=== PATIENT | male | born 1990 | race Caucasian/White ===

== ENCOUNTER 2022-05-17 03:23 | Emergency (ER) | payer SELFPAY ==
[2022-05-17 03:38] VITALS: BP 119/84; PULSE 92; RESP 18; TEMP 37.1; O2SAT 98; BMI 33.0
--- NOTE | 2022-05-17 04:01 | CTR_ITS ---
PROCEDURE INFORMATION: Exam: CT Head Without Contrast Exam date and time: 05/17/2022 4:27 AM Age: 32 years old Clinical indication: Pain; Slurred speech; Patient HX: -headache for 4 days with speech disturbances on and off over same time period. Slurred words, stuttering or trying to put words to thoughts; Additional info: Headache, speech problems TECHNIQUE: Imaging protocol: Computed tomography of the head without contrast. Radiation optimization: All CT scans at this facility use at least one of these dose optimization techniques: automated exposure control; mA and/or kV adjustment per patient size (includes targeted exams where dose is matched to clinical indication); or iterative reconstruction. COMPARISON: CT head wo con* [id number] 05/31/2017 12:22 PM RADIATION DOSE METRICS: Total DLP (mGy-cm): 899.36 FINDINGS: Brain: No acute hemorrhage identified. No large territorial areas of hypoattenuation concerning for ischemic infarct identified. No intracranial mass effect. Cerebral ventricles: The ventricles are within normal limits. Paranasal sinuses: The visualized sinuses are unremarkable. Mastoid air cells: The visualized mastoid air cells are well aerated. Bones/joints: The osseous structures are intact. Soft tissues: Unremarkable. CT/CT head wo con* [id number] IMPRESSION: No acute intracranial abnormality.
--- NOTE | 2022-05-17 04:43 | ED_ITS ---
HPI - Headache General: Chief Complaint: Headache Stated Complaint: headache Time Seen by Provider: 05/17/22 03:52 Source: patient History of Present Illness: 32-year-old male with no significant medical problems. He presents with several symptoms over the past few days. He notes that he had a fever at times, headache, some transient visual changes, and some transient weakness. He presented to an outside facility 2 days ago, ended up going home without being seen. He did the same thing at this facility last night. He returns this morning for evaluation. His headache is improved currently. MD elicited complaint: headache Pertinent past history: other Onset (ago): day(s) Onset description: gradually Location: right and temporal Quality & Timing: aching and throbbing Exacerbating factors: none Relieving factors: nothing Associated symptoms: Reports fever(s), lightheadedness and paresthesias; Deny chest pain, confusion, eye pain, neck stiffness or vomiting Review of Systems Const: Reports: fever(s) ENMT: Reports: throat pain Card: Reports: lightheadedness; Denies: chest pain GI: Denies: vomiting Neuro: Denies: confusion Physical Exam Const: COMMON NORMALS: no acute distress and alert GENERAL APPEARANCE: cooperative and well developed; not ill appearing and not frail appearing HENMT: COMMON NORMALS: normocephalic, atraumatic and Normal external nose present HEAD & SCALP: normocephalic and atraumatic FACE & SINUS: normal facial exam and face symmetric NOSE: Normal external nose present and Normal nares present Eye: COMMON NORMALS: Equal, round and reactive pupils present and EOMs intact bilaterally PUPIL: Yes Equal, round and reactive pupils present Neck/C-Spine: GENERAL: Yes trachea midline CERVICAL SPINE: Yes cervical ROM normal Chest: CHEST: Yes Symmetrical chest wall rise Resp: COMMON NORMALS: normal respiratory effort, No use of accessory muscles and clear to auscultation bilaterally AUSCULTATION: clear to auscultation bilaterally Cardio: COMMON NORMALS: regular rate and regular rhythm RATE: regular rate RHYTHM: regular rhythm GI: COMMON NORMALS: Normal to inspection, nondistended, normoactive bowel sounds present Neuro: LENNY COMA SCALE: document GCS findings Lenny coma scale eye openin g: Spontaneous [place] coma scale verbal response: Orientated [place] coma scale motor response: Obey commands Lenny coma scale total score: 15 SENSORIUM/ORIENTATION: Yes alert CRANIAL NERVES: Yes CN normal except as noted COORDINATION/BALANCE: uzzals-lj-yfos test normal and lvbd-gq-[id number] test normal SPEECH: speech normal GAIT: Yes Normal gait present MOTOR EXAM: Pronator motor function not present COORDINATION: [id number]-pg-[id number] test normal and sarx-qh-hrsd test normal Psych: COMMON NORMALS: mental status grossly normal and cooperative Course Vital Signs: Vital signs: Vital Signs Temperature 98.7 F 05/17/22 03:38 Pulse Rate 92 05/17/22 03:38 Respiratory Rate 18 05/17/22 03:38 Blood Pressure 119/84 05/17/22 03:38 Pulse Oximetry 98 05/17/22 03:38 MDM - Headache Medical Decision Making Patient's NIH stroke scale is 0. He is afebrile here. With his history of sore throat, febrile illness, and headache, he will be tested for COVID-[address] is completed but read is pending. CT head is negative. He will be treated for migraine headache. COVID-19 antigen is negative as well. Lab Data Radiology Impressions Head CT 05/17/22 04:01 IMPRESSION: No acute intracranial abnormality. Laboratory Results SARS-CoV-2 Ag (Rapid) Negative (Negative) 05/17/22 04:34 Discharge Plan Discharge Patient Disposition: Home Clinical Impression: Headache Condition: Stable Discharge Orders: Discharge ED (Routine); Ordered 05/17/22 Ordered By: Jonah Kay Discharge Diet: Advance as tolerated Discharge Activity: Resume usual activity Patient Instructions: General Headache (ED) Activity Restrictions/Additional Instructions: No evidence of stroke on your CT scan. Symptoms are likely related to migraine headache. Return for worsening mental status, weakness, vomiting, any other concerning symptoms Coding Level of Care Code ED Electronic Equipment Trades Worker for Ara Fwd Exam Comprehensive
[2022-05-17 05:00] LABS: SARS Covid-2 Antigen Negative (Negative)
[2022-05-17] MEDS: promethazine 25 mg/mL SDV 1 mL IM (06:13)
[2022-05-17] MEDS: ketorolac 30 mg/mL INJ IM (06:14)
[2022-05-17 06:28] VITALS: BP 115/78; PULSE 80; RESP 18; TEMP 36.7; O2SAT 97
== END 2022-05-17 06:30 | disposition home or self-care (01) ==
PROVIDERS: Emergency Provider Emergency Medicine
DX: R51.9 Headache, unspecified (principal)
CPT/HCPCS: 70450; 87426; 96372; 99283; J1885; J2550

== ENCOUNTER 2025-01-25 13:48 | Emergency (ER) | payer OTHER, BC, MEDICAID, SELFPAY ==
[2025-01-25 13:53] VITALS: BP 135/95; PULSE 87; TEMP 36.6; O2SAT 99; BMI 38.4
[2025-01-25 14:20] LABS: Basophils % 0.4 %; Eosinophils # 0.2 10^3/uL (0.0-0.8); Eosinophils % 2.2 %; Hematocrit 43.2 % (37-53); Lymphocytes % 22.5 %; Mean Corpuscular HGB Conc 32.4 g/dL (30-55); Mean Corpuscular Hemoglobin 29.2 pg (27-33); Mean Corpuscular Volume 90.2 fl (82-101); Mean Platelet Volume 9.8 fL (7.4-10.4); Monocytes # 0.7 10^3/uL (0.2-0.9); Monocytes % 7.6 %; Neutrophils # 6.06 10^3/uL (1.8-7.7); Neutrophils % 67.1 %; Nucleated Red Blood Cells % 0 %; Platelet Count 337 10^3/cmm (157-399); Red Blood Count 4.79 10^6/uL (3.85-5.65); Red Cell Distribution Width 14.1 % (12.1-15.1); White Blood Count 9.04 10^3/uL (3.29-11.43)
[2025-01-25 14:40] LABS: Alanine Aminotransferase 25 U/L (0-41); Alkaline Phosphatase 95 U/L (40-130); Anion Gap 14.9 (5-19); Aspartate Amino Transferase 25 U/L (0-40); Blood Urea Nitrogen 13 mg/dL (6-20); Calcium 8.9 mg/dL (8.5-10.5); Carbon Dioxide 25 mmol/L (22-29); Chloride 100 mmol/L (98-107); Globulin 3.7 g/dL (1.3-4.6); Glomerular Filtration Rate 126.9 mL/min (90-130); Glucose 104 mg/dL (65-115); Lipase 20 U/L (13-60); Osmolality Calculated 282 mOsm/kg (285-295); Potassium 3.9 mmol/L (3.5-5.1); Sodium 136 mmol/L (136-145); Total Bilirubin 0.4 mg/dL (0.15-1.2); Total Protein 7.7 g/dL (6.6-8.7)
--- NOTE | 2025-01-25 16:21 | ED_ITS ---
HPI - Abdominal Pain 2 General: Chief Complaint: Abdominal Pain Stated Complaint: abd pain Time Seen by Provider: 01/25/25 16:05 History of Present Illness: 35-year-old male patient that works at [employer] comes in today for complaints of left upper abdominal pain. Patient is tender to the left upper abdomen. Patient reports no problems with bowels or bladder. Patient reports no fever or chills. Patient does do a lot of heavy lifting at work. Patient reports that over the last 3 days he has had increasing pain and discomfort. Patient appears nontoxic. Patient reports no chronic medical problems. Related Data Previous Rx's ?Medication ?Instructions ?Recorded hydrocodone 5 mg-acetaminophen 325 1 tab PO Q8H PRN pa in #6 tabs 01/25/25 mg tablet ibuprofen 800 mg tablet 800 mg PO Q6H PRN pain #30 t abs 01/25/25 Allergies Allergy/AdvReac Type Severity Reaction Status Date / Time No Known Allergies Allergy Verified 01/25/25 13:58 Review of Systems 2 General: Reports: 10 or more systems reviewed and unremarkable except in HPI and below PFSH ED 2 PFSH: Medical History (Updated 01/25/25 @ 16:22 by EMILY Lim) Psychiatric care Physical Exam 2 Const: COMMON NORMALS: alert HENMT: COMMON NORMALS: normocephalic HEAD & SCALP: normocephalic Neck/C-Spine: COMMON NORMALS: full ROM Resp: COMMON NORMALS: normal respiratory effort Cardio: COMMON NORMALS: regular rate and regular rhythm RATE: regular rate RHYTHM: regular rhythm GI: PALPATION: Yes Tenderness to palpation present (GI) (Left upper quadrant) OTHER: Muscle tenderness to the left upper quadrant, no palpable mass or hernia : COMMON NORMALS: Yes no CVA tenderness BLADDER/KIDNEY EXAM: Yes no CVA tenderness Back/Pelvis: COMMON NORMALS: no CVA tenderness Extremity: COMMON NORMALS: full ROM Neuro: SENSORIUM/ORIENTATION: Yes alert Skin: COMMON NORMALS: turgor normal GENERAL SKIN EXAM: turgor normal Course 2 Vital Signs: Vital signs: Vital Signs Temperature 97.9 F 01/25/25 13:53 Pulse Rate 87 01/25/25 13:53 Blood Pressure 135/95 01/25/25 13:53 Pulse Oximetry 99 01/25/25 13:53 Oxygen Delivery Me thod Room Air 01/25/25 13:53 MDM - Abdominal Pain Medical Decision Making 35-year-old male patient comes in today with left upper quadrant abdominal pain. On exam patient's abdomen is soft with some tenderness to the muscle of the left upper abdomen. Bowel sounds are present. Skin is warm and dry. Vital signs are normal. Differential diagnosis includes not limited to muscle strain, constipation, GERD, unlikely hernia. Laboratory values were normal. Believe patient most likely has a muscle strain as it is tender to touch and some palpable tightness is noted in a band of muscle to the area. No palpation of hernia is noted. It is unlikely for hernia to perform there unless he had prior surgery or noticeable trauma. Reviewed exam with patient with recommendation for treatment and follow-up. Patient reported understanding. Lab Data 01/25/25 14:12 01/25/25 14:12 Labs/Radiology: Laboratory Results WBC 9.04 10^3/uL (3.29-11.43) 01/25/25 14:12 RBC 4.79 10^6/uL (3.85-5.65) 01/25/25 14:12 Hgb 14.00 g/dL (11.27-16.99) 01/25/25 14:12 Hct 43.2 % (37-53) 01/25/25 14:12 MCV 90.2 fl (82-101) 01/25/25 14:12 MCH 29.2 pg (27-33) 01/25/25 14:12 MCHC 32.4 g/dL (30-55) 01/25/25 14:12 RDW 14.1 % (12.1-15.1) 01/25/25 14:12 Plt Count 337 10^3/cmm (157-399) 01/25/25 14:12 MPV 9.8 fL (7.4-10.4) 01/25/25 14:12 Neut % (Auto) 67.1 % 01/25/25 14:12 Lymph % (Auto) 22.5 % 01/25/25 14:12 Tompkins % (Auto) 7.6 % 01/25/25 14:12 Eos % (Auto) 2.2 % 01/25/25 14:12 Baso % (Auto) 0.4 % 01/25/25 14:12 Neut # (Auto) 6.06 10^3/uL (1.8-7.7) 01/25/25 14:12 Lymph # (Auto) 2.0 10^3/uL (0.8-4.8) 01/25/25 14:12 [place]kins # (Auto) 0.7 10^3/uL (0.2-0.9) 01/25/25 14:12 Eos # (Auto) 0.2 10^3/uL (0.0-0.8) 01/25/25 14:12 Baso # (Auto) 0.0 10^3/uL (0.0-0.1) 01/25/25 14:12 Nucleated RBC % (auto) 0 % 01/25/25 14:12 Nucleated RBCs # 0.0 /100WBC 01/25/25 14:12 Sodium 136 mmol/L (136-145) 01/25/25 14:12 Potassium 3.9 mmol/L (3.5-5.1) 01/25/25 14:12 Chloride 100 mmol/L (98-107) 01/25/25 14:12 Carbon Dioxide 25 mmol/L (22-29) 01/25/25 14:12 Anion Gap 14.9 (5-19) 01/25/25 14:12 BUN 13 mg/dL (6-20) 01/25/25 14:12 Creatinine 0.7 mg/dL (0.7-1.2) 01/25/25 14:12 GFR Calculation 126.9 mL/min (90-130) 01/25/25 14:12 Glucose 104 mg/dL (65-115) 01/25/25 14:12 Calculated Osmolality 282 mOsm/kg (285-295) L 01/25/25 14:12 Calcium 8.9 mg/dL (8.5-10.5) 01/25/25 14:12 Total Bilirubin 0.4 mg/dL (0.15-1.2) 01/25/25 14:12 AST 25 U/L (0-40) 01/25/25 14:12 ALT 25 U/L (0-41) 01/25/25 14:12 Alkaline Phosphatase 95 U/L (40-130) 01/25/25 14:12 Total Protein 7.7 g/dL (6.6-8.7) 01/25/25 14:12 Albumin 4.0 g/dL (3.5-5.2) 01/25/25 14:12 Globulin 3.7 g/dL (1.3-4.6) 01/25/25 14:12 Lipase 20 U/L (13-60) 01/25/25 14:12 No radiology studies performed this visit Discharge Plan Discharge Patient Disposition: Home Clinical Impression: Abdominal muscle strain Qualifiers: Encounter type: initial encounter Qualified Code(s): S39.011A - Strain of muscle, fascia and tendon of abdomen, initial encounter Condition: Stable Prescriptions: New hydrocodone-acetaminophen 5-325 mg tablet 1 tab PO Q8H PRN (Reason: pain) Qty: 6 0RF ibuprofen 800 mg tablet 800 mg PO Q6H PRN (Reason: pain) Qty: 30 0RF Discharge Orders: Discharge ED (Routine); Ordered 01/25/25 Ordered By: Irwin Arboleda Discharge Diet: Usual diet Discharge Activity: Increase activity as tolerated Patient Instructions: Abdominal Pain (ED) Activity Restrictions/Additional Instructions: Activity as tolerated. Drink plenty of water and fluids. Follow-up with primary care for persistent symptoms. Return to ED for worsening symptoms such as high fever greater than 101, blood in vomit or stool, or new concerns. Stand Alone Forms: Work/School Release Print Language: Israeli Coding Level of Care Code ED Order Entry Clerk for Ara Pierce
== END 2025-01-25 16:40 | disposition home or self-care (01) ==
PROVIDERS: Emergency Medicine; Emergency Provider Nurse Practitioner Family
DX: S39.011A Strain of muscle, fascia and tendon of abdomen, initial encounter (principal); X58.XXXA Exposure to other specified factors, initial encounter
CPT/HCPCS: 36415; 80053; 83690; 85025; 99283